=== PATIENT | male | born 1940 | race African-American/Black ===

== ENCOUNTER → 2016-09-18 | Outpatient (CLI) | payer MEDICARE | END | disposition home or self-care (01) | LOC: NM 08:12 | PROVIDERS: ATTEND Urology | DX: C61 Malignant neoplasm of prostate (principal); N40.0 Benign prostatic hyperplasia without lower urinary tract symptoms; N30.90 Cystitis, unspecified without hematuria; K42.9 Umbilical hernia without obstruction or gangrene; K57.30 Diverticulosis of large intestine without perforation or abscess without bleeding; M19.012 Primary osteoarthritis, left shoulder; M19.011 Primary osteoarthritis, right shoulder; C79.51 Secondary malignant neoplasm of bone | CPT/HCPCS: 74176; 78306; A9503 ==